=== PATIENT | male | born 1965 | race Caucasian/White ===

== ENCOUNTER 2017-04-03 11:47 | Emergency (ER) | payer MEDICAID, OTHER, SELFPAY ==
[~2017-04-03] VITALS: Ht 182.9 cm; Wt 103.2 kg
[2017-04-03 12:25] VITALS: BP 143/93
[2017-04-03] MEDS ORDERED: DIAZEPAM 5 MG TABLET PO ONE (13:30)
[2017-04-03] MEDS ORDERED: KETOROLAC 30 MG/1 ML IM ONE (13:30)
[2017-04-03] MEDS ORDERED: HYDROcodone/APAP 5/325 TABLET PO ONE (13:30)
[2017-04-03] MEDS ORDERED: KETOROLAC 30 MG/1 ML ONE (13:31)
== END 2017-04-03 13:48 | disposition home or self-care (01) ==
LOC: ED 13:40
DX: S39.012A Strain of muscle, fascia and tendon of lower back, initial encounter (principal); F17.210 Nicotine dependence, cigarettes, uncomplicated; I10 Essential (primary) hypertension; X58.XXXA Exposure to other specified factors, initial encounter; Y93.89 Activity, other specified; Y92.89 Other specified places as the place of occurrence of the external cause; Y99.8 Other external cause status
CPT/HCPCS: 96372; 99283; J1885